=== PATIENT | female | born 1995 | race Caucasian/White ===

== ENCOUNTER → 2016-11-08 | Outpatient (CLI) | payer OTHER ==
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
== END | disposition home or self-care (01) ==
LOC: C.RADPV 15:54
PROVIDERS: ATTEND Nurse Practitioner
DX: S99.911A Unspecified injury of right ankle, initial encounter (principal); X58.XXXA Exposure to other specified factors, initial encounter; M79.9 Soft tissue disorder, unspecified

== ENCOUNTER → 2017-01-03 | Outpatient (CLI) | payer OTHER ==
[~2017-01-03] MED LIST: ESCI1TAB10 PO; IBUP-1451 PO; NORGTAB3 PO
[2017-01-03 12:24] LABS: BASO % 0.5 %; BASO ABS # 0.04 K/uL (0-0.2); COMPLETE YES; EOS % 2.5 %; HEMATOCRIT 45.4 % (37-47); IG% 0.1 %; LYMPH % 40.6 %; LYMPH ABS # 3.15 K/uL (1.2-3.4); MEAN CELL VOLUME 90.4 fL (80-100); MEAN CORPUSCULAR HEMOGLOBIN 30.5 pg (25-34); MEAN CORPUSCULAR HGB CONC 33.7 g/dl (32-36); MEAN PLATELET VOLUME 10.5 fL (7.4-10.4); MONO % 6.2 %; NEUT % 50.1 %; PLATELET COUNT 330 K/uL (130-400); RED BLOOD COUNT 5.02 M/uL (4.2-5.4); WHITE BLOOD COUNT 7.75 K/uL (4.8-10.8)
== END | disposition home or self-care (01) ==
LOC: C.LABPVFM 08:55
PROVIDERS: ATTEND Family Medicine Adult Medicine
DX: B34.9 Viral infection, unspecified (principal)

== ENCOUNTER 2017-01-22 16:47 | Emergency (ER) | payer OTHER ==
[~2017-01-22] VITALS: Ht 167.6 cm; Wt 80.5 kg
[2017-01-22 16:51] VITALS: TEMP 37.4; Ht 167.6 cm; Wt 80.5 kg
[2017-01-22] MEDS ORDERED: ACETAMINOPHEN 500 MG TAB PO STA (17:11)
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
[2017-01-22] MEDS ORDERED: ESCI1TAB10 PO (17:32)
[2017-01-22] MEDS ORDERED: NORGTAB3 PO (17:33)
[2017-01-22] MEDS ORDERED: IBUP-1451 PO (17:34)
--- NOTE | 2017-01-22 17:43 | DIAGNOSTIC IMAGING REPORT ---
L SHOULDER MIN 2 VIEWS ROUTINE CLINICAL HISTORY: Left shoulder pain following fall. COMPARISON: None FINDINGS: Alignment of the left shoulder is anatomic. There is no acute fracture. IMPRESSION: No acute fracture or dislocation of the left shoulder. Electronically signed by: Lenny Victoria M.D. 01/22/2017 5:41 PM Dictated Date/Time: 01/22/2017 5:40 PM
--- NOTE | 2017-01-22 17:44 | DIAGNOSTIC IMAGING REPORT ---
L ELBOW MIN 3 VIEWS ROUTINE CLINICAL HISTORY: Left elbow pain following fall. COMPARISON: None FINDINGS: Alignment of left elbow is anatomic. There is no acute fracture or joint effusion. 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 This reflects an anatomic variant. IMPRESSION: No acute fracture or joint effusion of the left elbow. Electronically signed by: Lenny Victoria M.D. 01/22/2017 5:43 PM Dictated Date/Time: 01/22/2017 5:42 PM
[2017-01-22 18:34] VITALS: BP 121/71; PULSE 72; O2SAT 98
== END 2017-01-22 18:10 | disposition home or self-care (01) ==
LOC: C.EDB 16:48 → C.EDD 18:10
DX: S50.02XA Contusion of left elbow, initial encounter (principal); V18.2XXA Unspecified pedal cyclist injured in noncollision transport accident in nontraffic accident, initial encounter; Y93.55 Activity, bike riding; Y99.8 Other external cause status

== ENCOUNTER 2017-02-22 10:49 | Emergency (ER) | payer OTHER ==
[~2017-02-22] VITALS: Ht 167.6 cm; Wt 80.2 kg
[2017-02-22 10:54] VITALS: Ht 167.6 cm; Wt 80.2 kg
[2017-02-22] MEDS ORDERED: HYDROCODONE/ACETAMOPHEN 5/325MG TAB PO STA (11:31)
[2017-02-22] MEDS ORDERED: PRD/1 PO (11:43)
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
[2017-02-22] MEDS ORDERED: LORAZEPAM 1 MG TAB SL STA (12:33)
[2017-02-22 12:38] VITALS: BP 119/93; PULSE 82; TEMP 37; O2SAT 98
== END 2017-02-22 12:39 | disposition home or self-care (01) ==
LOC: C.EDB 10:51 → C.EDD 12:39
DX: S00.83XA Contusion of other part of head, initial encounter (principal); S02.5XXA Fracture of tooth (traumatic), initial encounter for closed fracture; V18.0XXA Pedal cycle driver injured in noncollision transport accident in nontraffic accident, initial encounter; Y93.55 Activity, bike riding; Y99.8 Other external cause status; F32.9 Major depressive disorder, single episode, unspecified; F41.9 Anxiety disorder, unspecified; Z90.89 Acquired absence of other organs; Z79.899 Other long term (current) drug therapy

== ENCOUNTER → 2017-05-01 | Outpatient (CLI) | payer OTHER ==
[~2017-05-01] MED LIST changes: -IBUP-1451 PO; +PRD/1 PO
[2017-05-01 16:30] LABS: HEP C IGG 13 YRS+OLDER_RFLX NEG (NEG)
== END | disposition home or self-care (01) ==
LOC: C.LAB1850 14:47
PROVIDERS: ATTEND Obstetrics & Gynecology
DX: Z11.3 Encounter for screening for infections with a predominantly sexual mode of transmission (principal)

== ENCOUNTER → 2017-05-01 | Outpatient (CLI) | payer OTHER | END | disposition home or self-care (01) | LOC: C.PAPS 09:40 | PROVIDERS: ATTEND Obstetrics & Gynecology | DX: Z01.411 Encounter for gynecological examination (general) (routine) with abnormal findings (principal); R87.612 Low grade squamous intraepithelial lesion on cytologic smear of cervix (LGSIL) ==